=== PATIENT | male | born 1990 | race Hispanic/Latino ===

== ENCOUNTER 2018-07-15 23:56 | Inpatient (IN) | payer OTHER ==
[2018-07-16 04:47] VITALS: BMI 22.0
--- NOTE | 2018-07-16 07:51 | RAD ---
Exam: Chest one view HISTORY:Chest pain Comparison: None FINDINGS: Cardiac silhouette: Normal Pulmonary vessels: Normal Costophrenic angles: Clear LUNGS: No masses or consolidation. Pneumothorax: None Osseous abnormalities: None IMPRESSION: No acute cardiopulmonary process.
[2018-07-16] MEDS ORDERED: Ondansetron ODT 4 MG TAB PO PRN (07:59)
[2018-07-16] MEDS ORDERED: Lorazepam 2 MG/ML VIAL SLOW IVP PRN (07:59)
[2018-07-16] MEDS: Enoxaparin Sodium 40 MG/0.4 ML SYRINGE SC SCH (08:40)
[2018-07-16] MEDS: levETIRAcetam 500 MG TAB PO SCH ×2 (08:40→20:53)
[2018-07-16 10:23] LABS: #Eosinphils 0.2 thou/uL (0.0-0.7); #Lymphocytes 1.6 thou/uL (1.20-3.40); #Monocytes 0.5 thou/uL (0.11-0.59); #Neutrophils 3.9 thou/uL (1.40-6.50); %Basophils 0.8 % (0.0-1.0); %Eosinophils 2.8 % (0.0-10.0); %Lymphocytes 25.7 % (21.0-51.0); %Monocytes 7.6 % (0.0-10.0); %Neutrophils 63.1 % (42.0-75.0); Hemoglobin 15.8 g/dL (14.0-18.0); Mean Corpuscular HGB CONC 34.3 g/dL (32.0-36.0); Mean Corpuscular Hemoglobin 32.6 pg (27.0-31.0); Mean Platelet Volume 7.1 fL (7.4-10.4); Platelet Count 274 thou/uL (130-400); RBC Distribution Width 11.1 % (11.5-14.5); Red Blood Cell (RBC) Count 4.86 mill/uL (4.70-6.10); White Blood Cell (WBC) Count 6.2 thou/uL (4.8-10.8)
[2018-07-16 10:45] LABS: ALT (SGPT) 16 U/L (8-55); AST (SGOT) 11 U/L (5-34); Albumin 4.4 g/dL (3.5-5.0); Alkaline Phosphatase 76 U/L (40-150); Anion Gap 14 mmol/L (10-20); BUN (Urea Nitrogen) 15 mg/dL (8.9-20.6); Bilirubin, Total 0.4 mg/dL (0.2-1.2); Calc. Creatinine Clearance 104 mL/min (70-130); Calcium 9.3 mg/dL (7.8-10.44); Carbon Dioxide 25 mmol/L (22-29); Chloride 102 mmol/L (98-107); Estimated GFR-MDRD Greater than 90; Globulin 2.7 g/dL (2.4-3.5); Glucose 88 mg/dL (70-105); Potassium 3.7 mmol/L (3.5-5.1); Protein, Total 7.1 g/dL (6.0-8.3); Sodium 137 mmol/L (136-145)
[2018-07-16 11:49] LABS: Amphetamine Not Detected (NotDetected); Barbiturates Screen Not Detected (NotDetected); Benzodiazepine Screen Detected (NotDetected); Cocaine Metabolite Screen Not Detected (NotDetected); Medtox Control Line Valid? VALID (VALID); Medtox Reader # READER 4; Methadone Not Detected (NotDetected); Methamphetamine Not Detected (NotDetected); Opiate Screen Not Detected (NotDetected); Oxycodone Screen Not Detected (NotDetected); Phencyclidine (PCP) Not Detected (NotDetected); THC/Cannabinoid Screen Not Detected (NotDetected); Tricyclic Screen Not Detected (NotDetected)
--- NOTE | 2018-07-16 12:15 | CT ---
CT brain. HISTORY: Seizure. Noncontrast enhanced CT images brain obtained. The brain is unremarkable. No evidence of intracranial masses, hemorrhages, strokes or contusion seen. IMPRESSION: Normal CT brain.
--- NOTE | 2018-07-16 12:36 | HP ---
HISTORY: [facility] prisoner. City Call Admission for [facility]. The patient apparently had a seizure at [facility] yesterday, was brought to the emergency room, had two more. He was seen, evaluated, and referred to [facility] Hospitalist Service. He has no memory of the seizures. He states he has been off seizure medicine since he has been incarcerated for [facility] for 2 years. PAST MEDICAL HISTORY: Seizure disorder, hypertension. MEDICATIONS: He is on no medications. ALLERGIES: NONE. PAST SURGICAL HISTORY: He has had a left inguinal hernia repair. FAMILY HISTORY: He has a brother with a seizure disorder. SOCIAL HISTORY: He is single. He smokes cigarettes before his incarceration. He has had no alcohol while he has been incarcerated. REVIEW OF SYSTEMS: GENERAL: He has had a headache after his seizure. No dizziness or fainting. EYES: No double vision, blurred vision, or flashing lights. EAR, NOSE, AND THROAT: No ear pain or drainage. No nasal bleeding. No trouble swallowing. CARDIAC: He has had minor sharp chest pain since his seizures. He has had no orthopnea. No pressure chest pain. RESPIRATION: No cough, wheezing, or asthma. GASTROINTESTINAL: No nausea, vomiting, diarrhea, or constipation. GENITOURINARY: No hematuria, dysuria, or nocturia. MUSCULOSKELETAL: No pain or swelling in his arms or legs. NEUROLOGICAL: See present illness. PSYCHIATRIC: No anxiety or depression. SKIN: No bruising, bleeding, or rash. HEME/LYMPH: No tender or swollen lymph nodes in the axilla, inguinal, or cervical area. PHYSICAL EXAMINATION: GENERAL: He is alert, pleasant, cooperative. VITAL SIGNS: Blood pressure 125/68, respirations 16, pulse 63, and temperature of 97.5. HEENT: Examination of his head, eyes, ears, nose, and throat; pupils are equal, round, and reactive to light. Extraocular movements are intact. Sclerae are white. Tympanic membranes are clear. Nose clear. Oral mucous membranes are wet. Dental hygiene is good. NECK: No jugular venous distention, adenopathy, or thyromegaly. CHEST: Clear to auscultation and percussion. HEART: Had a regular rate and rhythm. First and second heart sounds are clear. No murmurs, rubs, or gallops. ABDOMEN: Soft. Bowel sounds are normal. There is no hepatosplenomegaly. No mass. No rebound. No bruits. EXTREMITIES: Revealed no cyanosis, clubbing, or edema. PULSES: Carotid, radial, femoral, and dorsalis pedis pulses are intact. SKIN: Warm and dry without bruises or rash. HEME/LYMPH: No tender or swollen lymph nodes in axilla, inguinal, or cervical area. NEUROLOGICAL: Was a little bit hampered by his hands, feet being chained, however. Cranial nerves II through XII are intact. Strength is grossly symmetric. Deep tendon reflexes grossly symmetric. Toes are downgoing. STUDIES: The only laboratory available from the emergency room is a troponin that is normal. The only radiographic availability is a chest x-ray that reveals no cardiomegaly, CHF, or infiltrate. An EKG was done, which reveals sinus rhythm with no ST-T abnormality. ADMITTING DIAGNOSES: 1. Grand mal seizures, postictal status resolved with prior seizure history. 2. History of hypertension. 3. Sharp chest pain, postseizure. 4. Headache, postseizure. PLAN: 1. Start Keppra 500 mg p.o. b.i.d. now. 2. CT of the brain. 3. EEG. 4. CBC, comprehensive metabolic pro. Job ID: [id number] [facility]
--- NOTE | 2018-07-16 14:14 | PDOC.EVN ---
Event Note - Event Note Event Note: CT of brain- no acute abn. cbc, cmp WNL. UDS pos benzodiazapins- [facility]
--- NOTE | 2018-07-16 16:46 | EEG ---
Referring Physician: Dorinda SUAZO EEG # [id number] TEST TYPE: ROUTINE PORTABLE INPATIENT REPORT: AN EEG USING THE INTERNATIONAL TEN-TWENTY SYSTEM OF ELECTRODE PLACEMENT WAS PERFORMED. The waking background is a medium amplitude 9 hertz alpha frequency. No sleep was seen. Photic stimulation and hyperventilation were unremarkable. No epileptiform features were present. IMPRESSION: THIS IS A NORMAL AWAKE EEG. Life Specialist: MEREDITH Rodeo Performer: [email or web address] CORMIER
[2018-07-16] MEDS: Acetaminophen 325 MG TAB PO PRN (16:55)
[2018-07-16] MEDS ORDERED: levETIRAcetam 2,000 MG in Sodium Chloride 0.9% 100 ML IVPB SCH (17:15)
[2018-07-16 17:35] LABS: Anion Gap 10 mmol/L (10-20); BUN (Urea Nitrogen) 15 mg/dL (8.9-20.6); Calc. Creatinine Clearance 101 mL/min (70-130); Calcium 9.3 mg/dL (7.8-10.44); Carbon Dioxide 26 mmol/L (22-29); Chloride 103 mmol/L (98-107); Estimated GFR-MDRD Greater than 90; Glucose 111 mg/dL (70-105); Sodium 135 mmol/L (136-145)
--- NOTE | 2018-07-17 00:46 | CON ---
DATE OF CONSULTATION: 07/16/2018 CONSULTING PHYSICIAN: Hospitalist Service. IMPRESSION: Seizures versus pseudoseizures. PLAN: 1. Keppra loading dose 2000 mg now. 2. Check basic metabolic and prolactin level, now that he is postictal from a recent seizure. 3. Continue Keppra 500 mg twice a day. HISTORY OF PRESENT ILLNESS: Mr. Guerrier is a 27-year-old man, who reportedly has a history of epilepsy. He is now incarcerated and was off anticonvulsants. He previously was treated with Tegretol. He apparently had what appeared to be a generalized seizure. He was brought to the hospital for evaluation. He has had several recurrences that have been brief. Nurses report a very questionable brief postictal period. There is some suggestive evidence that during the seizure he is still responsive. He was started on Keppra, but had a recent seizure about 20 minutes ago. PAST MEDICAL HISTORY: Otherwise negative. ALLERGIES: NONE REPORTED. SOCIAL HISTORY: He is incarcerated. FAMILY HISTORY: Noncontributory. REVIEW OF SYSTEMS: 10-system review of systems is unremarkable. PHYSICAL EXAMINATION: GENERAL: He is a thin young man, lying in bed in shackles. HEENT: Pupils are equal and reactive. Conjunctivae clear. Oropharynx clear. NECK: Supple. EXTREMITIES: No cyanosis. NEUROLOGIC: Appears to be awake and responsive. He is nonfocal. No abnormal movements are seen. LABORATORY DATA: EEG showed a normal background with no evidence of epileptiform activity. SUMMARY: A 27-year-old man with reported history of epilepsy, who is having recurrent spells. It is difficult to say with certainty without more data as to whether they are physiologic or embellishments in order for a secondary gain. I will be more aggressive with his treatment, see if this brings it under control as it should and make a disposition shortly. Job ID: [id number]
[2018-07-17] MEDS: Acetaminophen 325 MG TAB PO PRN (08:59)
[2018-07-17] MEDS ORDERED: Amlodipine 10 MG TAB PO SCH (09:00)
[2018-07-17] MEDS: levETIRAcetam 500 MG TAB PO SCH ×2 (09:00→20:44)
[2018-07-17] MEDS: Enoxaparin Sodium 40 MG/0.4 ML SYRINGE SC SCH (09:00)
[2018-07-17 19:19] VITALS: BP 146/77; TEMP 97.9
--- NOTE | 2018-07-18 17:01 | EKG ---
Test Reason : Blood Pressure : / mmHG Vent. Rate : 066 BPM Atrial Rate : 066 BPM P-R Int : 118 ms QRS Dur : 090 ms QT Int : 410 ms P-R-T Axes : 047 096 051 degrees QTc Int : 429 ms Normal sinus rhythm Rightward axis Borderline ECG Confirmed by NEISHA ESTRELLA DO ([id number]), movie editor MARYAN JIMENEZ ([id number]) on 07/18/2018 5:01:31 PM Referred By: Confirmed By:NEISHA ESTRELLA DO
--- NOTE | 2018-07-20 | DIS ---
DATE OF ADMISSION: 07/16/2018 DATE OF DISCHARGE: 07/17/2018 DISCHARGE DIAGNOSES: 1. Pseudoseizures. 2. History of seizures. 3. History of hypertension. HISTORY: The patient is a 27-year-old male who presented to the emergency department from [facility], where he is incarcerated. The patient apparently had a seizure at the [facility] unit. The patient reported no memory of this event, but reported he had a history of seizure disorder and had not been on any medications since he had been incarcerated for the past 2 years. The patient apparently reported some chest discomfort after the seizure. He had no findings on EKG and his troponin was normal. HOSPITAL COURSE: The patient was admitted to the hospital with seizures. He had a CT scan of the brain, which was unremarkable. He had consultation by Neurology and was loaded with Keppra. Neurology performed an EEG, which was unremarkable and it was felt that the patient likely had pseudoseizures; however, because of his history of seizure disorder, was maintained on Keppra. The patient had no further seizure activity in the hospital. PHYSICAL EXAMINATION: VITAL SIGNS: Temperature 97.9, pulse 64, respirations 16, O2 saturation 97% on room air, BP 146/77. GENERAL: The patient was awake and alert. HEART: Regular rate and rhythm. LUNGS: Clear. ABDOMEN: Benign. NEUROLOGICAL: Intact with no focal deficits. DISPOSITION: The patient is discharged in stable condition back to [facility]. ACTIVITY: As tolerated. DIET: He has no dietary restrictions. DISCHARGE MEDICATIONS: He will be on Keppra 500 mg b.i.d. and Norvasc 10 mg daily. FOLLOWUP: He will have followup at the [facility] and should return to the hospital once the need arises. Time spent in discharge activities, including face time with the patient, was 39 min. Job ID: [id number] [facility]
== END 2018-07-17 20:50 | DRG 101 ==
LOC: ERS 23:56 → EEVIPCON 23:56 → OBSVTOIN 07-16 02:22 → 2SE 07-16 02:22
PROVIDERS: ADMIT Hospitalist; ATTEND Hospitalist
DX: G40.802 Other epilepsy, not intractable, without status epilepticus (principal); I10 Essential (primary) hypertension; J45.909 Unspecified asthma, uncomplicated; F17.210 Nicotine dependence, cigarettes, uncomplicated; F32.9 Major depressive disorder, single episode, unspecified; R07.89 Other chest pain; G44.89 Other headache syndrome; Z79.899 Other long term (current) drug therapy
CPT/HCPCS: 36415; 70450; 71045; 80053; 80306; 84146; 84484; 85025; 93005; 95816; 95819; J1650; J1953; J3490; Q0162